=== PATIENT | female | born 2000 | race Caucasian/White ===

== ENCOUNTER → 2022-11-11 | Outpatient (CLI) | payer OTHER ==
[~2022-11-11] MED LIST: ADDERALL XR25 MG PO; FLEXERIL 1010 MG/TAB PO; ROBAXIN 50500 MG/TAB PO
== END ==
LOC: COL.RAD 13:54
DX: N83.202 Unspecified ovarian cyst, left side (principal); N93.8 Other specified abnormal uterine and vaginal bleeding